=== PATIENT | female | born 2005 | race Two or more races ===

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

== ENCOUNTER 2024-05-13 09:27 | Emergency (ER) | payer MEDICAID, OTHER ==
[~2024-05-13] VITALS: Ht 167.6 cm; Wt 119.7 kg
[2024-05-13 10:21] VITALS: BP 124/82; PULSE 61; RESP 16; TEMP 98.5; O2SAT 99
[2024-05-13] MEDS ORDERED: AMOX500T3 PO (10:44)
[2024-05-13] MEDS ORDERED: CIPR1SUS8 OT (10:44)
[2024-05-13] MEDS ORDERED: IBUP-1454 PO (10:44)
== END 2024-05-13 10:49 | disposition home or self-care (01) ==
LOC: ER 09:27
DX: H66.91 Otitis media, unspecified, right ear (principal)

== ENCOUNTER 2024-05-17 09:49 | Emergency (ER) | payer MEDICAID ==
[~2024-05-17] VITALS: Ht 167.6 cm; Wt 119.3 kg
[~2024-05-17 09:49] MED LIST: AMOX500T3 PO; CIPR1SUS8 OT; IBUP-1454 PO
[2024-05-17 10:23] VITALS: BP 138/92; PULSE 71; RESP 17; TEMP 98.3; O2SAT 99
[2024-05-17] MEDS: IBUPROFEN 800 MG TAB PO ONE (10:37)
[2024-05-17] MEDS: cefTRIAXone SOD 1,000 MG VL IM ONE (10:37)
[2024-05-17] MEDS ORDERED: AUG875T PO (10:43)
[2024-05-17] MEDS ORDERED: IBUP-1456 PO (10:43)
== END 2024-05-17 10:47 | disposition home or self-care (01) ==
LOC: ER 09:49
DX: H66.91 Otitis media, unspecified, right ear (principal); Z79.899 Other long term (current) drug therapy
CPT/HCPCS: 96372; 99283; J0696